=== PATIENT | female | born 1965 | race Caucasian/White ===

== ENCOUNTER 2024-12-14 13:04 | Inpatient (IN) | payer MEDICAID, OTHER ==
[~2024-12-14] VITALS: Ht 160 cm; Wt 88.5 kg
--- NOTE | 2024-12-14 13:17 | ED.PDOC ---
HPI (NEURO) HPI Comments 59-year-old Lao-speaking female, with no significant medical history, is brought in by ambulance from private residence for chief complaint of headache. Per EMS personnel report, patient is a poor historian, who, repeatedly, changes her narrative on nature of illness. She was reported to admit on drinking alcohol, earlier, today. Additionally, EMS states on patient being hypotensive, with a systolic pressure in the 80s. At time of assessment, patient reports on headache beginning an hour ago, suddenly and unprovoked, and it being nonradiating and pressure-like in quality. No endorsement of any recent injuries, sick contact, or further pertinent events or history. Denial of any dizziness, vision or speech changes, facial droop, lightheadedness, or further associated symptoms. 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 Family History Family History: Unknown Social History Smoker: Non-Smoker Alcohol: Heavy Drugs: Marijuana All Other Systems: Reviewed and Negative (Comprehensive review of systems are negative unless otherwise stated in HPI) Physical Exam General Appearance: Moderate Distress HEENT: Normal ENT Inspection, Pharynx Normal, TMs Normal Neck: Full Range of Motion, Non-Tender, Normal, Normal Inspection Respiratory: Chest Non-Tender, Lungs Clear, No Accessory Muscle Use, No Respiratory Distress, Normal Breath Sounds Cardiovascular: No Edema, No JVD, No Murmur, No Gallop, Normal Peripheral Pulses, Regular Rate/Rhythm Breast Exam: Deferred Gastrointestinal: No Organomegaly, Non Tender, No Pulsatile Mass, Normal Bowel Sounds, Soft Genitalia: Deferred Pelvic: Deferred Rectal: Deferred Extremities: No calf tenderness, Normal capillary refill, Normal inspection, Normal range of motion, Non-tender, No pedal edema Musculoskeletal : Apperance: Normal Neurologic: Alert, trucker hand II-XII nml as Tested, No Motor Deficits, Normal Affect, Normal Mood, No Sensory Deficits Cerebellar Function: Normal Reflexes: Normal Skin: Dry, Normal Color, Warm Peripheral Pulses: 3+ Radial (R), 3+ Radial (L) Lymphatic: No Adenopathy Was a procedure done? Was a procedure done?: No Differential Diagnosis (SZ) Seizure: Psychogenic Seizure, Closed Head Injury, CVA/TIA, N/A CVA: Other (N/a) General Weakness: N/A Headache: Cluster, Migraine, Closed Head Injury, CVA, Epidural Hemorrhage, Intracerebral Hemorrhage, Subarachnoid Hemorrhage, Subdural Hemorrhage, Meningitis, Post-Traumatic, Sinusitis X-Ray, Labs, Meds, VS Vital Signs Date Time Temp Pulse Resp B/P (MAP) Pulse Ox O2 Delivery O2 Flow Rate FiO2 12/14/24 13:10 98.7 89 16 136/59 95 98.7 Lab Test 12/14/24 13:47 Range/Units White Blood Count 8.6 4.4-10.8 10^3/uL Red Blood Count 4.60 4.0-5.20 10^6/uL Hemoglobin 14.0 12.2-16.2 g/dL Hematocrit 41.2 36.0-46.0 % Mean Corpuscular Volume 89.5 80.0-100.0 fL Mean Corpuscular Hemoglobin 30.3 28.0-32.0 pg Mean Corpuscular Hemoglobin Concent 33.9 32.0-36.0 g/dL Red Cell Distribution Width 14.6 H 11.8-14.3 % Platelet Count 402 140-450 10^3/uL Mean Platelet Volume 7.4 6.9-10.8 fL Neutrophils (%) (Auto) 63.1 37.0-80.0 % Lymphocytes (%) (Auto) 24.1 10.0-50.0 % Monocytes (%) (Auto) 9.2 0.0-12.0 % Eosinophils (%) (Auto) 2.7 0.0-7.0 % Basophils (%) (Auto) 0.9 0.0-2.0 % Neutrophils # (Auto) 5.5 1.6-8.6 10 ^3/uL Lymphocytes # (Auto) 2.1 0.4-5.4 10 ^3/uL Monocytes # (Auto) 0.8 0-1.3 10 ^3/uL Eosinophils # (Auto) 0.2 0-0.8 10 ^3/uL Basophils # (Auto) 0.1 0-0.2 10 ^3/uL Nucleated Red Blood Cells 0.0 % Sodium Level 140 136-145 mmol/L Potassium Level 3.6 3.5-5.1 mmol/L Chloride Level 107 98-107 mmol/L Carbon Dioxide Level 20 20-31 mmol/L Anion Gap 13 5-15 Blood Urea Nitrogen 11 9-23 mg/dL Creatinine 1.12 H 0.550-1.02 mg/dL Glomerular Filtration Rate Calc 56 >90 mL/min BUN/Creatinine Ratio 9.8 L 10.0-20.0 Serum Glucose 112 H 74-106 mg/dL Calcium Level 10.0 8.7-10.4 mg/dL Patient alert. Came in because of headache. Vitals stable. Ambulating. No sign of distress. Moving all extremities. No neurological deficit. She has been comfortable throughout the ER stay. WBC within normal limits. Hemoglobin within normal limits. Was given prescription of meclizine. Explained to the patient. Was told to follow up with her primary care physician. Was told to come back if there is any problem. Time of 1ST Reevaluation: 13:30 Reevaluation 1ST: Improved Patient Education/Counseling: Diagnosis, Treatment Family Education/Counseling: No Family Present Departure 1 Departure Time of Disposition: 16:04 Impression: Primary Impression: Autonomic disorder Disposition: 01 HOME / SELF CARE / HOMELESS Condition: Good e-Prescriptions Cephalexin (KEFLEX CAPSULE) 250 Mg Cp 250 MG PO QID for 5 Days, #20 BOTTLE Prov: SOL ALTMAN MD 12/14/24 Meclizine HCl (Meclizine 25) 25 Mg Tab 25 MG PO DAILY for 5 Days, #5 TAB Prov: SOL ALTMAN MD 12/14/24 Discharged With: Self Critical Care Note Critical Care Time?: No Stability Stability form required: No Heart Score Heart Score: Heart Score Response (Comments) Value History N/A 0 EKG N/A 0 Age N/A 0 Risk Factors N/A 0 Troponin N/A 0 Total 0 I personally scribed for SOL ALTMAN MD ([email or web address]) on 12/14/24 at 13:17. Electronically submitted by Jian Lopez [email or web address]). SOL ALTMAN MD Dec 14, 2024 13:17
[2024-12-14] MEDS: SODIUM CHLORIDE 0.9% 1,000 ML IV ONE (13:45)
[2024-12-14 14:02] LABS: Hematocrit 41.2 % (36.0-46.0); Hemoglobin 14.0 g/dL (12.2-16.2); Mean Corpuscular Hemoglobin 30.3 pg (28.0-32.0); Mean Corpuscular Volume 89.5 fL (80.0-100.0); Nucleated Red Blood Cells % 0.0 %
[2024-12-14 14:10] LABS: Potassium 3.6 mmol/L (3.5-5.1); Sodium 140 mmol/L (136-145)
[2024-12-14 14:11] LABS: Anion Gap 13 (5-15); Carbon Dioxide 20 mmol/L (20-31); Chloride 107 mmol/L (98-107)
[2024-12-14 14:12] LABS: Calcium 10.0 mg/dL (8.7-10.4)
[2024-12-14 14:16] LABS: BUN/Creatinine Ratio 9.8 (10.0-20.0); Blood Urea Nitrogen 11 mg/dL (9-23)
[2024-12-14 14:18] LABS: Glucose 112 mg/dL (74-106)
[2024-12-14] MEDS ORDERED: MECL1TAB42 PO (16:05)
[2024-12-14] MEDS ORDERED: CEPH250C PO (16:06)
--- NOTE | 2024-12-14 23:16 | DVHHPRES ---
History of Present Illness Resident Creating Document: ALEIDA QUINTERO RESIDENT History of Present Illness Ashley Figueroa is a 59-year-old female with past medical history of hypertension, alcohol use disorder, marijuana use disorder, is came to the ED with chief complaints of severe pressure-like 10/10 headache which is intermitt ent since 1 month. Patient is a poor historian, Yemeni-speaking who appears confused, changes her narrative. As per patient her last drink was 3 days ago. Patient states that she was painting when suddenly she had a severe headache which is nonradiating, denies any fall, head trauma, dizziness, vision changes, lightheadedness, nausea, vomiting, diarrhea, shortness of the breath , chest pain. Patient is admitted for further management. Surgical history: Denies Family history: Reviewed, noncontributory Personal history: Admits to drinking alcohol, uses marijuana, denies cigarette smoking Lives: Alone Review of Systems Constitutional: Yes: Other (Severe headache, dizziness); No: Fever, Chills, Sweats, Weakness, Malaise Eyes: No: Pain, Vision change, Conjunctivae inflammation, Eyelid inflammation, Other, Redness ENT: No: Ear pain, Ear discharge, Nose pain, Nose discharge, Nose congestion, Mouth pain, Mouth swelling, Throat pain, Throat swelling, Other Respiratory: No: Cough, Dry, Shortness of breath, SOB with excertion, Wheezing, Hemoptysis, Pleuritic Pain, Sputum, Wheezing, Other Cardiovascular: No: Chest Pain, Palpitations, Orthopnea, Paroxysmal Noc. Dyspnea, Edema, Lt Headedness, Other Gastrointestinal: No: Nausea, Vomiting, Abdominal Pain, Diarrhea, Constipation, Melena, Hematochezia, Other Genitourinary: No Dysuria, No Frequency, No Incontinence, No Hematuria, No Retention, No Other Musculoskeletal: No: other, neck pain, shoulder pain, arm pain, back pain, hand pain, leg pain, foot pain Skin: No: Rash, Lesions, Jaundice, Bruising, Other Neurological: No: Weakness, Numbness, Incoordination, Change in speech, Confusion, Seizures, Other Allergies: Coded Allergies: NO KNOWN ALLERGIES (Unverified , 01/04/14) Exam Vital Signs Vital Signs Date Time Temp Pulse Resp B/P (MAP) Pulse Ox O2 Delivery O2 Flow Rate FiO2 12/14/24 21:07 97.8 80 16 157/76 (103) 98 97.8 Exam General: Patient alert and oriented in person, place and time. Patient following commands. HEENT: Normocephalic, atraumatic, moist mucous membranes Respiratory/pulmonary: Clear lungs bilaterally, vesicular murmurs present in almost all lung meadows, no associated crackles or wheezes. Cardiovascular: Normal heart sounds S1 and S2 with no associated murmurs Abdomen: Abdomen nondistended, there is no pain to palpation in any of the abdominal quadrants, no palpable masses. Extremities: There is no peripheral edema present at the lower extremities. Peripheral Pulses: 3+ Radial (R). 3+ Radial (L). 3+ Dorsalis pedis (R). 3+ Dorsalis pedis(L) Skin: No rashes or pruritus, there is no sacral edema present at this time. Neurological: Intact cranial nerves with no focal neurologic deficits Psych/mood: Anxious Labs/Xrays Labs Test 12/14/24 13:47 Range/Units White Blood Count 8.6 4.4-10.8 10^3/uL Red Blood Count 4.60 4.0-5.20 10^6/uL Hemoglobin 14.0 12.2-16.2 g/dL Hematocrit 41.2 36.0-46.0 % Mean Corpuscular Volume 89.5 80.0-100.0 fL Mean Corpuscular Hemoglobin 30.3 28.0-32.0 pg Mean Corpuscular Hemoglobin Concent 33.9 32.0-36.0 g/dL Red Cell Distribution Width 14.6 H 11.8-14.3 % Platelet Count 402 140-450 10^3/uL Mean Platelet Volume 7.4 6.9-10.8 fL Neutrophils (%) (Auto) 63.1 37.0-80.0 % Lymphocytes (%) (Auto) 24.1 10.0-50.0 % Monocytes (%) (Auto) 9.2 0.0-12.0 % Eosinophils (%) (Auto) 2.7 0.0-7.0 % Basophils (%) (Auto) 0.9 0.0-2.0 % Neutrophils # (Auto) 5.5 1.6-8.6 10 ^3/uL Lymphocytes # (Auto) 2.1 0.4-5.4 10 ^3/uL Monocytes # (Auto) 0.8 0-1.3 10 ^3/uL Eosinophils # (Auto) 0.2 0-0.8 10 ^3/uL Basophils # (Auto) 0.1 0-0.2 10 ^3/uL Nucleated Red Blood Cells 0.0 % Sodium Level 140 136-145 mmol/L Potassium Level 3.6 3.5-5.1 mmol/L Chloride Level 107 98-107 mmol/L Carbon Dioxide Level 20 20-31 mmol/L Anion Gap 13 5-15 Blood Urea Nitrogen 11 9-23 mg/dL Creatinine 1.12 H 0.550-1.02 mg/dL Glomerular Filtration Rate Calc 56 >90 mL/min BUN/Creatinine Ratio 9.8 L 10.0-20.0 Serum Glucose 112 H 74-106 mg/dL Calcium Level 10.0 8.7-10.4 mg/dL SEPSIS Sepsis Screen Date sepsis recognized/suspect: Dec 14, 2024 Time Sepsis recognized/suspect: 1309 Recent Procedure: No On Antibiotic Therapy: No Respiratory Rate >20: No Heart Rate >90: No Temp<36 C (96.8 F) or >38.3 C: No SBP <90 or MAP <65 mmHG: No New Acute Mental Status Change: No Is the patient on CPAP, BIPAP,: No Physician Orders Cardiac Diet-2gna,Lofat,Lochol (12/14/24 Dinner) Head Without Contrast (12/14/24 22:25) Chest Xray 1 View (12/14/24 22:25) Admit (12/14/24 22:35) Oxygen By Nasal Cannula (12/14/24 22:35) Stat Ekg For Chest Pain (12/14/24 22:35) Notify Md Of Changes From Base (12/14/24 22:35) Dispatch Machine Runner For 24 Hours (12/14/24 22:35) Emergency Dysrhythmia Protocol (12/14/24 22:35) Rhythm Strips Once Every Shift (12/14/24 22:35) Blood Alcohol (12/14/24 22:35) Drug Screen (12/14/24 22:35) Vital Signs Date Time Temp Pulse Resp B/P (MAP) Pulse Ox O2 Delivery O2 Flow Rate FiO2 12/14/24 21:07 97.8 80 16 157/76 (103) 98 97.8 Laboratory Tests Test 12/14/24 13:47 White Blood Count 8.6 10^3/uL (4.4-10.8) Medications Medications Dose Ordered Sig/Jillian Route Start Time Stop Time Status Last Admin Dose Admin Sodium Chloride 1,000 ml @ 1,000 mls/hr Q1H ONCE IV 12/14/24 13:45 12/14/24 14:44 DC 12/14/24 13:45 1,000 MLS/HR Assessment/Plan Assessment/Plan Assessment/plan # toxic encephalopathy # intractable headache due to alcohol withdrawal, other causes not ruled out yet -Head CT showed No acute intracranial abnormality. -UDS # Alcohol Use disorder -Patient counselled for alcohol cessation -Social service consult for Helping patient regarding alcohol cessation with ALCOHOL ANONYMOUS group -IV thiamine # alcohol withdrawal, mild, CIWA score 8 - gabapentin p.r.n. # hypertension -Patient does not take any home medication -Started on amlodipine # marijuana use disorder - patient advised on cessation of marijuana for 13 minutes Goals of care addressed with the patient for more than 27 minutes: Full code status Case discussed with Dr. Sahni , patient and nurse Plan discussed with: Patient Date of Service: Dec 14, 2024 Billing Provider: PEPPER SANHI MD Common Visit Codes: 53588-ICRQPAB INP/OBS CARE (HIGH) Secondary Visit Codes: 64656-DUFKORED CARE PLAN 30 MINUTES ALEIDA QUINTERO RESIDENT Dec 14, 2024 23:16
[2024-12-14 23:57] VITALS: TEMP 97.1; O2SAT 99
[2024-12-15 00:06] VITALS: BP 164/79; PULSE 79; RESP 18
[2024-12-15] MEDS: MORPHINE SULFATE INJ 2 MG/ml SYRG IV ONE (00:06)
[2024-12-15] MEDS: THIAMINE 100mg/ml INJ (200mg/2ml VIAL) IV ONE (00:07)
--- NOTE | 2024-12-15 06:50 | DVH ---
EXAM: CT HEAD WITHOUT CONTRAST INDICATION: Intractable headaches TECHNIQUE: CT of the head without intravenous contrast. Radiation Dose : 1. Head: CT Dose: CTDI volume is 53.21 mGy. Dose-length product is 942.26 mGy*cm The dose indicators for CT are the volume Computed Tomography (CT) Dose Index (CTDIvol) and the Dose Length Product (DLP), and are measured in units of mGy and mGy-cm, respectively. These indicators are not patient dose, but values generated from the CT scanner acquisition factors. The report includes radiation exposure data for exposures received during this examination. COMPARISON: None FINDINGS: There is no evidence of acute intracranial hemorrhage, extra-axial collection, mass effect, midline s hift, herniation or hydrocephalus. The ventricles, sulci and cisterns are age appropriate. The recinos-white differentiation is intact. The visualized paranasal sinuses and mastoid air cells are clear. The surrounding soft tissues and osseous structures are unremarkable. IMPRESSION: 1. No acute intracranial abnormality. Radiation optimization: All CT scans at this facility use at least one of these dose optimization wilmer hniques: automated exposure control mA and/or kV adjustment per patient size (includes targeted exam s where dose is matched to clinical indication) or iterative reconstruction.
--- NOTE | 2024-12-15 06:50 | DVH ---
CHEST RADIOGRAPH Indication: sob Technique: Single frontal view of the chest was obtained COMPARISON: None FINDINGS: Lines and Tubes: None Lungs: Clear Pleura: No effusion. No pneumothorax. Cardiomediastinal contours: Unremarkable Bones: Unremarkable IMPRESSION: 1. No acute disease.
[2024-12-15 07:37] LABS: Alanine Aminotransferase 24 U/L (7-40); Albumin 4.8 g/dL (3.2-4.8); Alkaline Phosphatase 92 U/L (46-116); Bilirubin, Total 0.3 mg/dL (0.2-1.0); Total Protein 8.2 g/dL (5.7-8.2)
[2024-12-15 07:38] LABS: Bilirubin, Direct < 0.1 mg/dL (<0.3)
[2024-12-15] MEDS ORDERED: SODIUM CHLORIDE 0.9% 1,000 ML IV SCH (08:00)
[2024-12-15] MEDS ORDERED: ENOXAPARIN SOD 40 MG/0.4 ML SYRINGE SC SCH (08:16)
[2024-12-15 09:20] LABS: Free T3 3.03 pg/mL (2.3-4.2)
[2024-12-15 09:21] LABS: Free T4 (Free Thyroxine) 1.12 ng/dL (0.89-1.76)
[2024-12-15] MEDS ORDERED: THIAMINE 100mg/ml INJ (200mg/2ml VIAL) IV SCH (10:00)
[2024-12-15] MEDS ORDERED: FOLIC ACID 1 MG TAB PO SCH (10:00)
[2024-12-15] MEDS ORDERED: MULTIPLE VITAMIN TAB PO SCH (10:00)
[2024-12-15] MEDS ORDERED: FOLIC ACID 1 MG, MAGNESIUM SULF SDV 50% 8 MEQ, MULTIPLE VITAMIN 10 ML, THIAMINE INJ 100... INJ SCH (18:00)
--- NOTE | 2024-12-15 18:31 | DVHDSRES ---
Discharge Summary Date of Admission Resident Creating Document: ALEIDA QUINTERO RESIDENT Dec 14, 2024 at 22:35 Date of Discharge: Dec 15, 2024 Admitting Diagnosis Toxic encephalopathy Alcohol withdrawal Labs/Diagnostic Data: Laboratory Results Test 12/15/24 06:42 12/14/24 13:47 Hemoglobin A1c 6.4 % A1C (<5.7) Magnesium Level 2.0 mg/dL (1.6-2.6) Total Bilirubin 0.3 mg/dL (0.2-1.0) Direct Bilirubin < 0.1 mg/dL (<0.3) Aspartate Amino Transferase (AST) 28 U/L (13-40) Alanine Aminotransferase (ALT) 24 U/L (7-40) Alkaline Phosphatase 92 U/L (46-116) Troponin I High Sensitivity < 3 ng/L (</=34) Total Protein 8.2 g/dL (5.7-8.2) Albumin 4.8 g/dL (3.2-4.8) Vitamin B12 Level 956 pg/mL (211-911) Vitamin D 25-Hydroxy 31.9 ng/mL (30.0-100) Folic Acid 29.49 ng/mL (>5.38) Thyroid Stimulating Hormone (TSH) 10.21 uIU/mL (0.55-4.78) Free Thyroxine (T4) Calculated 1.12 ng/dL (0.89-1.76) Free Triiodothyronine (T3) pg/mL 3.03 pg/mL (2.3-4.2) White Blood Count 8.6 10^3/uL (4.4-10.8) Red Blood Count 4.60 10^6/uL (4.0-5.20) Hemoglobin 14.0 g/dL (12.2-16.2) Hematocrit 41.2 % (36.0-46.0) Mean Corpuscular Volume 89.5 fL (80.0-100.0) Mean Corpuscular Hemoglobin 30.3 pg (28.0-32.0) Mean Corpuscular Hemoglobin Concent 33.9 g/dL (32.0-36.0) Red Cell Distribution Width 14.6 % (11.8-14.3) Platelet Count 402 10^3/uL (140-450) Mean Platelet Volume 7.4 fL (6.9-10.8) Neutrophils (%) (Auto) 63.1 % (37.0-80.0) Lymphocytes (%) (Auto) 24.1 % (10.0-50.0) Monocytes (%) (Auto) 9.2 % (0.0-12.0) Eosinophils (%) (Auto) 2.7 % (0.0-7.0) Basophils (%) (Auto) 0.9 % (0.0-2.0) Neutrophils # (Auto) 5.5 10 ^3/uL (1.6-8.6) Lymphocytes # (Auto) 2.1 10 ^3/uL (0.4-5.4) Monocytes # (Auto) 0.8 10 ^3/uL (0-1.3) Eosinophils # (Auto) 0.2 10 ^3/uL (0-0.8) Basophils # (Auto) 0.1 10 ^3/uL (0-0.2) Nucleated Red Blood Cells 0.0 % Sodium Level 140 mmol/L (136-145) Potassium Level 3.6 mmol/L (3.5-5.1) Chloride Level 107 mmol/L (98-107) Carbon Dioxide Level 20 mmol/L (20-31) Anion Gap 13 (5-15) Blood Urea Nitrogen 11 mg/dL (9-23) Creatinine 1.12 mg/dL (0.550-1.02) Glomerular Filtration Rate Calc 56 mL/min (>90) BUN/Creatinine Ratio 9.8 (10.0-20.0) Serum Glucose 112 mg/dL (74-106) Calcium Level 10.0 mg/dL (8.7-10.4) Plasma/Serum Blood Alcohol < 3.0 mg/dL (<10) Other Laboratory Tests 12/14/24 13:47 Brief Hx & Hospital Course: Ashley Figueroa is a 59-year-old female with past medical history of hypertension, alcohol use disorder, marijuana use disorder, is came to the ED with chief complaints of severe pressure-like 10/10 headache which is intermittent since 1 month. Patient is a poor historian, Turkmen-speaking who appears confused, changes her narrative. As per patient her last drink was 3 days ago. Patient states that she was painting when suddenly she had a severe headache which is nonradiating. Chest x-ray no acute disease. CT head no acute intracranial abnormality. Lab workup revealed hemoglobin A1c 6.4. TSH 10.21, F T4 1.12, if T3 3.03. Provider went to check on the patient but patient was not found in the ER. Patient's condition was undetermined on discharge. Operations or Procedures [address] [address] Ph: [phone] DIAGNOSTIC IMAGING Diagnostic Imaging Report : [id number] Signed PATIENT: ASHLEY FIGUEROA ACCT: [id number] UNIT: [id number] : 1965 LOC: OVERFLOW ROOM / BED: [address] [place] [address] / A AGE / SEX: 59 / F ADM STATUS: ADM IN SERVICE [id number] ORDERING PHYSICIAN: ALEIDA QUINTERO RESIDENT PROCEDURE(s): HWOCT - HEAD WITHOUT CONTRAST REASON: Intractable headaches ORDER NUMBER(s): [id number], ACCESSION NUMBER(s): [id number] EXAM: CT HEAD WITHOUT CONTRAST INDICATION: Intractable headaches TECHNIQUE: CT of the head without intravenous contrast. Radiation Dose : 1. Head: CT Dose: CTDI volume is 53.21 mGy. Dose-length product is 942.26 mGy*cm The dose indicators for CT are the volume Computed Tomography (CT) Dose Index (CTDIvol) and the Dose Length Product (DLP), and are measured in units of mGy and mGy-cm, respectively. These indicators are not patient dose, but values generated from the CT scanner acquisition factors. The report includes radiation exposure data for exposures received during this examination. COMPARISON: None FINDINGS: There is no evidence of acute intracranial hemorrhage, extra-axial collection, mass effect, midline shift, herniation or hydrocephalus. The ventricles, sulci and cisterns are age appropriate. The recinos-white differentiation is intact. The visualized paranasal sinuses and mastoid air cells are clear. The surrounding soft tissues and osseous structures are unremarkable. IMPRESSION: 1. No acute intracranial abnormality. Radiation optimization: All CT scans at this facility use at least one of these dose optimization techniques: automated exposure control mA and/or kV adjustment per patient size (includes targeted exams where dose is matched to clinical indication) or iterative reconstruction. ATED BY: LEONID MERA MD DICTATED DATE/TIME: 12/15/24647 SIGNED BY: LEONID MERA MD SIGNED DATE/TIME: 12/15/24647 CC: [place] [id number] Ph: [phone] DIAGNOSTIC IMAGING Diagnostic Imaging Report : [id number] Signed PATIENT: ASHLEY FIGUEROA ACCT: [id number] UNIT: [id number] : 1965 LOC: OVERFLOW ROOM / BED: [address] [place] [address] AGE / SEX: 59 / F ADM STATUS: ADM IN SERVICE 1 ORDERING PHYSICIAN: ALEIDA QUINTERO RESIDENT PROCEDURE(s): CXR1 - CHEST XRAY 1 VIEW REASON: sob ORDER NUMBER(s): [id number], ACCESSION NUMBER(s): [id number] CHEST RADIOGRAPH Indication: sob Technique: Single frontal view of the chest was obtained COMPARISON: None FINDINGS: Lines and Tubes: None Lungs: Clear Pleura: No effusion. No pneumothorax. Cardiomediastinal contours: Unremarkable Bones: Unremarkable IMPRESSION: 1. No acute disease. ATED BY: LEONID MERA MD DICTATED DATE/TIME: 12/15/24647 SIGNED BY: LEONID MERA MD SIGNED DATE/TIME: 12/15/24647 CC: Condition at Discharge: Undetermined Final Diagnosis/Problems List # toxic encephalopathy # intractable headache due to alcohol withdrawal, other causes not ruled out yet # Alcohol Use disorder # alcohol withdrawal, mild, CIWA score 8 # hypertension # marijuana use disorder # ?subclinical hypothyroidism Discharge Disposition: Eloped Discharge Instruct/Medications Follow Up/Referral: Patient eloped Medications: Patient eloped Scheduled Cephalexin (Keflex Capsule), 250 MG PO QID Meclizine HCl (Meclizine 25), 25 MG PO DAILY Discharge Statement: "Patient was advised to return to the ER or call 911 if any headaches, dizziness, shortness of breath, chest pain, abdominal pain, bleeding, fevers, or worsening of medical condition. Patient was counseled about treatment plan, medications, possible side effects, patientverbalized understanding. All questions were answered to the best of my ability. This discharge took greater then 30 minutes in planning, reviewing documentation, counseling the patient, and discussing with other team members." ASSESSMENT ASSESSMENT Assessment Date of Service: Dec 15, 2024 Billing Provider: AUDREY DOUGLASS MD Common Visit Codes: 55829-MSR/OBS DISCH DAY >30min GAETANO HOU Dec 15, 2024 18:31 AUDREY DOUGLASS MD Dec 23, 2024 23:34
== END 2024-12-15 10:15 | disposition left against medical advice (07) | DRG 52 ==
LOC: EDBD 13:04 → ER 13:04 → OVERFLOW 22:35
PROVIDERS: ADMIT Internal Medicine Geriatric Medicine; ATTEND Emergency Medicine
DX: G92.8 Other toxic encephalopathy (principal); E03.8 Other specified hypothyroidism; I10 Essential (primary) hypertension; F10.239 Alcohol dependence with withdrawal, unspecified; F12.90 Cannabis use, unspecified, uncomplicated; Y90.9 Presence of alcohol in blood, level not specified
CPT/HCPCS: 36415; 70450; 71045; 80048; 80076; 80320; 82306; 82607; 82746; 83036; 83735; 84439; 84443; 84481; 84484; 85025; 96374; G0378